=== PATIENT | female | born 1950 | race Caucasian/White ===

== ENCOUNTER 2018-07-06 10:50 | Outpatient (CLI) | payer MEDICARE, OTHER ==
--- NOTE | 2018-07-06 12:59 | RAD ---
THREE VIEWS CERVICAL SPINE: Date: 07-06-18 History: Prior neck surgery. Pre-operative evaluation. Patient has loss of balance and burning sensat ion in both hands. History of steroids injections. Comparison: 11-26-16 from [facility] FINDINGS: C1 to the cervicothoracic junction is seen on the lateral view although the T1 vertebral body is most ly obscured. There have been interval post-surgical changes compared to the prior study related to an terior cervical fusion of C3-4 and C4-5 levels with an anterior plate and screws transfixing this lev el. Intradiscal prostheses are also present at this level. In addition there is an anterior plate and screws transfixing the C7 and T1 vertebral bodies with intradiscal prosthesis at this level. There a re prominent degenerative changes seen at C5-6 and C6-7 levels with narrowing of the intervertebral d isc spaces and osteophyte formation present. No fracture or subluxation is seen. There is no abnormal translation motion seen between flexion and extension views of the cervical spine. There is mild pro minence of the prevertebral soft tissues when compared to prior exam, of uncertain significance. Righ t glenohumeral prosthesis is again present. IMPRESSION: 1. Post-surgical changes as well as degenerative changes involving the cervical spine. No fracture or subluxation is appreciated. There is no hardware complication identified. 2. Prominence of the prevertebral soft tissues when compared to the prior study in 2017. POS: [facility]
== END 2018-07-06 10:51 | disposition home or self-care (01) ==
LOC: TBSIIMAG 10:50
PROVIDERS: ATTEND Neurological Surgery
DX: M48.02 Spinal stenosis, cervical region (principal); M47.892 Other spondylosis, cervical region; Z98.1 Arthrodesis status
CPT/HCPCS: 72040

== ENCOUNTER 2018-07-13 10:31 | Observation (INO) | payer MEDICARE, OTHER ==
[2018-07-12 14:51] VITALS: BMI 29.2
--- NOTE | 2018-07-13 00:43 | HP ---
HISTORY OF PRESENT ILLNESS: Ms. Dhillon returns to our office. She has had ulnar nerve surgery, carpal tunnel release on the right as well as an ACDF C3-C4 , C4-C5 and C7-T1. These surgeries have helped her symptoms, but she still has burning in both hands. The fingers seem uncoordinated and there is imbalance and falls at home. In addition, there is low back pain and some leg pain, but these have responded very nicely to L-spine injections. The imbalance and the hand symptoms are terrible and she states that they are not improving. PAST MEDICAL HISTORY: Left breast cyst, appendix, shingles, left breast lump. PAST SURGICAL HISTORY: Hysterectomy, ACDF C4-C5, C7-T1, Dr. Lopez performed appendectomy in childbirth, right carpal tunnel release and ulnar release, shoulder replacement. FAMILY HISTORY: Father is , diagnosed with hypertension and heart disease. Mother is . Siblings are alive. SOCIAL HISTORY: The patient is a former smoker. She quit in 2011. Does not drink any alcohol or use illicit drugs. She is retired, , has two children. Does not drink any caffeine. REVIEW OF SYSTEMS: A 10-point review of systems has been completed and is negative other than stated above in the HPI. PHYSICAL EXAMINATION: CONSTITUTIONAL: The patient is alert and oriented. She is resting comfortably in our office, is not in any visible distress. HEENT: Head is normocephalic, atraumatic. Pupils are equal, round, reactive to light. Extraocular movements are intact. Moist mucous membranes. Hearing is intact. RESPIRATORY: Normal work of breathing in room air. CARDIOVASCULAR: Regular rate and rhythm. Normal S1, S2. NEUROLOGIC: Gait and station. Tandem gait 3 steps before stepping lateral, motor exam mild hand weakness symmetric. Sensory exam: Nondermatomal loss of sensation in wrist and hands entire hand, bilateral. There is some loss of foot sensation, but normal at the level of the ankle. Reflex exam, normal knee jerks and normal ankle jerks, to be of clonus on the left, one on the right. IMAGING: C spine MRI, improved with ACDF, but still stenosis at C3-C4, C4-C5, C5-C6, C6-C7, C7-T1, T1-T2. X-RAYS: Plates are in place. ASSESSMENT AND PLAN: Cervical stenosis with cervical myelopathy. Reports spondylosis with myelopathy. Dr. Lopez has offered the laminectomy without effusion. If there is no instability from the C3 through T2, if there is any instability, then rods and screws will be placed as well. Informed consent. We have discussed indications, risks, benefits, alternatives, and expected results from surgery. The risks discussed included, but were not limited to bleeding, infection, CSF leak, nerve damage, weakness, spinal cord injury, incontinence, paralysis, ventilator dependence, wheelchair dependence, loss of vision, hardware misplacement, cardiopulmonary complications, anesthesia or . Long-term complications discussed included, but were not limited to hardware failure and the degradation of the surrounding disks. She understands the risks and is willing to proceed with surgery. AGUSTÍN
[2018-07-13] MEDS ORDERED: Fentanyl 100 MCG/2 ML VIAL ONE ×2 (11:34→17:02)
[2018-07-13] MEDS ORDERED: Phenylephrine HCL 10 MG/ML VIAL ONE (11:34)
[2018-07-13 11:43] LABS: Hemoglobin 12.9 g/dL (12.0-16.0); Mean Corpuscular HGB CONC 31.3 g/dL (32.0-36.0); Mean Corpuscular Hemoglobin 23.4 pg (27.0-31.0); Mean Corpuscular Volume 74.7 fL (78.0-98.0); Mean Platelet Volume 7.3 fL (7.4-10.4); Platelet Count 277 thou/uL (130-400); RBC Distribution Width 13.1 % (11.5-14.5); Red Blood Cell (RBC) Count 5.53 mill/uL (4.20-5.40); White Blood Cell (WBC) Count 9.5 thou/uL (4.8-10.8)
[2018-07-13] MEDS ORDERED: Bacitracin Zinc Ointment 30 gm TUBE ONE ×2 (11:43→11:44)
[2018-07-13 11:48] LABS: INR-International Normal Ratio 0.9; PTT 31.6 SEC (22.9-36.1)
[2018-07-13] MEDS ORDERED: Sodium Chloride 0.9% 10 ML ONE ×2 (11:48→15:11)
[2018-07-13 12:05] LABS: Anion Gap 13 mmol/L (10-20); BUN (Urea Nitrogen) 11 mg/dL (9.8-20.1); Calc. Creatinine Clearance 90 mL/min (70-130); Calcium 10.8 mg/dL (7.8-10.44); Carbon Dioxide 32 mmol/L (23-31); Chloride 88 mmol/L (98-107); Estimated GFR-MDRD 80; Glucose 109 mg/dL (80-115); Potassium 3.1 mmol/L (3.5-5.1); Sodium 130 mmol/L (136-145)
[2018-07-13] MEDS ORDERED: CEFAZOLIN/Water 2 GM/20 ML SYRINGE ONE (12:06)
[2018-07-13] MEDS ORDERED: Thrombin 5000 UNITS/5 ML VIAL ONE (12:33)
[2018-07-13] MEDS ORDERED: Bupivacaine HCl 0.5%/Epinephrine 1:200,000/PF 30 ml Vial ONE (15:19)
[2018-07-13] MEDS ORDERED: Lidocaine 1% PF 5 ML VIAL ONE (15:36)
[2018-07-13] MEDS ORDERED: Ondansetron HCl/PF 4 MG/2 ML Vial ONE (15:36)
[2018-07-13] MEDS ORDERED: Esmolol 100 MG/10 ML VIAL ONE (15:36)
[2018-07-13] MEDS ORDERED: Dexamethasone 20 MG/5 ML VIAL ONE (15:36)
[2018-07-13] MEDS ORDERED: PHENYLEPHRINE-NS 100 MCG/ML 10 ML SYRINGE ONE (15:36)
[2018-07-13] MEDS ORDERED: ePHEDrine/0.9% NaCl/PF SYRINGE 50 mg/10 ml ONE (15:36)
[2018-07-13] MEDS ORDERED: Glycopyrrolate 0.2 MG/ML 5 ML SYRINGE ONE (15:36)
[2018-07-13] MEDS ORDERED: PROPOFOL 200 MG/20 ML VIAL ONE (15:36)
[2018-07-13] MEDS ORDERED: Promethazine HCl 12.5 MG SUPP PR PRN (16:19)
[2018-07-13] MEDS ORDERED: Acetaminophen/Codeine 30-300mg Tablet PO PRN ×2 (16:19)
[2018-07-13] MEDS ORDERED: Acetaminophen 325 MG TAB PO PRN (16:19)
[2018-07-13] MEDS ORDERED: Acetaminophen 650 MG Suppository PR PRN (16:19)
[2018-07-13] MEDS ORDERED: Promethazine HCl 25 MG/ML VIAL IM PRN ×2 (16:19→16:33)
[2018-07-13] MEDS ORDERED: Prochlorperazine 10 MG/2 ML VIAL IM PRN (16:19)
[2018-07-13] MEDS ORDERED: traMADol HCl 50 MG TAB PO PRN (16:19)
[2018-07-13] MEDS ORDERED: diphenhydrAMINE 25 MG CAP PO PRN (16:19)
[2018-07-13] MEDS ORDERED: Ondansetron HCl/PF 4 MG/2 ML Vial IVP PRN ×2 (16:19→16:33)
[2018-07-13] MEDS ORDERED: diphenhydrAMINE 50 MG/ML VIAL IVP PRN (16:19)
[2018-07-13] MEDS ORDERED: Promethazine 25 MG TAB PO PRN (16:19)
[2018-07-13] MEDS ORDERED: Fentanyl 100 MCG/2 ML VIAL SLOW IVP PRN (16:23)
[2018-07-13] MEDS ORDERED: HYDROmorphone 2 MG/ML VIAL SLOW IVP PRN (16:33)
[2018-07-13] MEDS ORDERED: PACU-Morphine 4MG/ML VIAL SLOW IVP PRN (16:33)
[2018-07-13] MEDS ORDERED: Promethazine HCl 25 MG/ML VIAL SLOW IVP PRN (16:33)
[2018-07-13] MEDS ORDERED: Scopolamine 1.5 mg/72 hour Patch TD SCH (17:00)
--- NOTE | 2018-07-13 19:46 | OP ---
DATE OF PROCEDURE: 07/13/2018 NEUROSURGERY OPERATIVE NOTE SURGEON: Claudio Lopez M.D. CITY RECORDER: None. PREOPERATIVE INDICATION: Prevent further neurological deterioration. PREOPERATIVE DIAGNOSES: Multilevel cervical spondylitic myelopathy. POSTOPERATIVE DIAGNOSES: Multilevel cervical spondylitic myelopathy. OPERATIVE PROCEDURE: Posterior cervical decompressive laminectomy, C3, C4, C5, C6, C7, T1, top of T2. PREOPERATIVE MEDICATION: Ancef 2 grams IV. DRAIN NUMBER: One. DRAIN TYPE: 10-Welsh Douglas. OPERATIVE DICTATION: The patient was brought to the operating room. General endotracheal anesthesia was induced. The Chino zach headholder was attached to patient's head and she was carefully rolled into prone position with her head immobilized by the [place] attachment for the operating table. A lateral fluoro radiograph was used to plan our incision. Hair was removed from the back of the neck with electric clippers. We marked out a midline incision and sterilely prepped and draped. We opened our incision with a 10- blade knife and controlled bleeding with bipolar and monopolar cautery. We used monopolar cautery to dissect through subcutaneous tissues to the ligamentum nuchae. We incised the ligament of nuchae in the midline and reflected the paraspinal muscles off the spinous processes and laminae from T2 all the way up to C2. A lateral fluoro radiograph confirmed the levels upon which we were operating. We then carried our dissection over to the facet joints and placed self-retaining retractors. Using a high-speed drill, we thinned the lamina on either side at C3, C4, C5, C6, C7, T1 and the top of T2 with each of her troughs drilled out. We used 1 and 2 mm Kerrison rongeurs to free the laminae from both sides remove the spinous process and laminae from C3- T1 as a single unit. We then widened our laminectomy defect at each of the levels 2 mm Kerrison rongeurs. We performed medial facetectomies and small foraminotomies at each level. We waxed the bone edges. When we were lateral to the thecal sac, we had decompressed enough of the dura. We turned our attention to T2. He removed the superior 6 mm of the lamina of T2 as well and widened our laminectomy defect until we were flush with the pedicles. We waxed all the bone edges. We irrigated copiously with bacitracin irrigation. We infused local anesthetic in the paraspinal muscles. We tunneled a drain inferiorly through a separate stab incision. We treated the wound with vancomycin powder. We closed the wound in anatomic layers. We applied a sterile dressing. This was a clean case and no contamination. AGUSTÍN
--- NOTE | 2018-07-13 19:48 | PDOC.PN ---
- Subjective Encounter Start Date: 07/13/18 Encounter Start Time: 19:47 Patient seen and examined for med mngt. Underwent Cervical decom. laminectomy. Pain controlled. No CP/SOB/Palpitations/N/V. - Objective MAR Reviewed: Yes Vital Signs & Weight: Weight Weight 170 lb I&O: 07/12/18 07/13/18 07/14/18 06:59 06:59 06:59 Intake Total 20 Output Total 25 Balance -5 Result Diagrams: 07/13/18 11:32 07/13/18 11:32 EKG Reviewed by me: Yes (NSR/ NSST) Phys Exam - Physical Examination Constitutional: NAD Neck: no JVD, supple Respiratory: no wheezing, no rales, no rhonchi, clear to auscultation bilateral Cardiovascular: RRR, no rub no heaves/pulsations Gastrointestinal: soft, non-tender, no distention, positive bowel sounds Musculoskeletal: no edema Neurological: moves all 4 limbs Psychiatric: A&O x 3 Dx/Plan - Plan DVT proph w/SCDs IMPRESSION/PLAN: 1. HTN Start Diovan at low dose. Resume Lasix at dc 2. DM2 Resume Metformin, Add Sliding scale 3. HLD Resume Statins 4. Hypothyroidism Resume Levothyroixine 5. Asthma Resume home meds, Add PRN nebs 6. Hypokalmia Will replace 7. GERD Resume PPI 8. Former smoker Thank you for this consultation. Will follow. Full code. DPOA - self/family Review of Systems - Review of Systems Constitutional: negative: fever, chills, sweats, weakness, malaise, other Respiratory: negative: Cough, Dry, Shortness of Breath, Hemoptysis, SOB with Excertion, Pleuritic Pain, Sputum, Wheezing Cardiovascular: negative: chest pain, palpitations, orthopnea, paroxysmal nocturnal dyspnea, edema, light headedness, other Gastrointestinal: negative: Nausea, Vomiting, Abdominal Pain, Diarrhea, Constipation, Melena, Hematochezia, Other Genitourinary: negative: Dysuria, Frequency, Incontinence, Hematuria, Retention , Other - Medications/Allergies Allergies/Adverse Reactions: Allergies Allergy/AdvReac Type Severity Reaction Status Date / Time codeine Allergy Verified 07/12/18 14:51 Sulfa (Sulfonamide Allergy Verified 07/12/18 14:51 Antibiotics) Medications: Current Medications Acetaminophen (Tylenol) 650 mg PO Q4H PRN PRN Reason: Headache/Fever or Pain Acetaminophen (Tylenol) 650 mg VT Q4H PRN PRN Reason: Headache/Fever or Pain Acetaminophen/Codeine Phosphate (Tylenol #3) 1 tab PO Q3H PRN PRN Reason: Mild Pain (1-3) Acetaminophen/Codeine Phosphate (Tylenol #3) 2 tab PO Q3H PRN PRN Reason: Moderate Pain (4-6) Cefazolin Sodium (Ancef) 2 gm SLOW IVP 0400,1200,2000 [facility] Stop: 07/14/18 12:01 Diphenhydramine HCl (Benadryl) 25 mg IVP Q6H PRN PRN Reason: Itching Diphenhydramine HCl (Benadryl) 25 mg PO Q6H PRN PRN Reason: Itching Fentanyl (Sublimaze) 25 mcg SLOW IVP Q2H PRN PRN Reason: Pain Sodium Chloride (Normal Saline 0.9%) 1,000 mls @ 75 mls/hr IV .[id number] [facility] Morphine Sulfate (Morphine) 2 mg SLOW IVP Q1H PRN PRN Reason: Moderate Breakthrough Pain Ondansetron HCl (Zofran) 4 mg IVP DAILYPRN PRN PRN Reason: Nausea Ondansetron HCl (Zofran Odt) 4 mg SL Q4HR [facility] Prochlorperazine Edisylate (Compazine) 10 mg IM Q6H PRN PRN Reason: Nausea/Vomiting Promethazine HCl (Phenergan) 12.5 mg PO Q4H PRN PRN Reason: Nausea/Vomiting Promethazine HCl (Phenergan Suppository) 12.5 mg VT Q4H PRN PRN Reason: Nausea/Vomiting Promethazine HCl (Phenergan) 12.5 mg IM Q4H PRN PRN Reason: Nausea/Vomiting Scopolamine (Transderm Scop) 1.5 mg TD Q3D [facility] Sodium Chloride (Flush - Normal Saline) 10 ml IVF PRN PRN PRN Reason: Saline Flush Tizanidine HCl (Zanaflex) 4 mg PO Q6H PRN PRN Reason: Muscle Spasm Tramadol HCl (Ultram) 50 mg PO Q6H PRN PRN Reason: Mild Pain (1-3) Tramadol HCl (Ultram) 100 mg PO Q6H PRN PRN Reason: Moderate Pain (4-6)
[2018-07-13] MEDS ORDERED: Dextrose 50% Abboject 50 ML SYRINGE SLOW IVP PRN (19:59)
[2018-07-13] MEDS ORDERED: hydrALAZINE 20 MG/ML VIAL SLOW IVP PRN (19:59)
[2018-07-13] MEDS ORDERED: Insulin Regular 300 UNITS/3 ML VIAL SC PRN ×2 (19:59)
[2018-07-13] MEDS ORDERED: Dextrose 5% in Water 1,000 ML IV PRN (19:59)
[2018-07-13] MEDS ORDERED: Potassium Chloride 20 MEQ TAB PO SCH (20:00)
[2018-07-13] MEDS: Ondansetron ODT 4 MG TAB SL SCH ×2 (20:13→21:31)
[2018-07-13] MEDS: traMADol HCl 50 MG TAB PO PRN (21:28)
[2018-07-13] MEDS: metFORMIN XR 500 MG TAB PO SCH (21:29)
[2018-07-13] MEDS: CEFAZOLIN/Water 2 GM/20 ML SYRINGE SLOW IVP SCH (21:30)
[2018-07-13] MEDS: Montelukast Sodium 10 mg Tablet PO SCH (21:30)
[2018-07-13] MEDS: Sodium Chloride 0.9% 1,000 ML IV SCH (21:35)
[2018-07-14] MEDS: Ondansetron ODT 4 MG TAB SL SCH ×6 (02:00→20:11)
[2018-07-14] MEDS: tiZANidine HCl 4 MG TAB PO PRN ×3 (02:15→20:43)
[2018-07-14] MEDS ORDERED: Ondansetron HCl/PF 4 MG/2 ML Vial ONE (05:13)
[2018-07-14] MEDS ORDERED: Ondansetron ODT 4 MG TAB ONE (05:14)
[2018-07-14] MEDS: CEFAZOLIN/Water 2 GM/20 ML SYRINGE SLOW IVP SCH ×2 (05:40→12:51)
[2018-07-14] MEDS: Levothyroxine Sodium 75 MCG TAB PO SCH (06:10)
[2018-07-14] MEDS: Mometasone/Formoterol 120 PUFF INHALER INH SCH ×2 (06:55→19:20)
--- NOTE | 2018-07-14 08:20 | PRG ---
DATE OF SERVICE: 07/14/2018 I saw Ms. Dhillon this morning. She is postop day #1 from a multilevel cervical decompressive laminect giselle for spondylitic myelopathy. She had multiple segments that were stenosed from C3 all the way to T2. Decompressive laminectomy went well. Ms. Dhillon tells me this morning that her forearm burning i n her hand burning dysesthesias are better. They are not completely gone, but are markedly improved. She feels she can control her hands and fingers well. Vital signs and drain output are unavailable as a computer system is down. Nursing reports the drain put out 90 mL overnight. I have examined Joyce Dhillon and I find her interossei strength and hand intrinsic strength quite good. It is at least 4 /5. I have not tested her balance walking yet. The dressing is intact and the drain is working. My plan today is get physical therapy to get Ms. Dhillon out of bed, moving. When she is safe for activi ties of daily living and her drain tapers off to less than 5 mL an hour, then the drain could be pawan silke. She can be discharged home. Otherwise, that can happen tomorrow.
[2018-07-14] MEDS: traMADol HCl 50 MG TAB PO PRN ×2 (12:41→20:44)
[2018-07-14] MEDS: Sodium Chloride 0.9% 1,000 ML IV SCH ×2 (12:50→20:11)
[2018-07-14] MEDS: Rosuvastatin 20 MG TAB PO SCH (12:51)
[2018-07-14] MEDS: Valsartan 80 MG TAB PO SCH ×2 (12:52→20:10)
[2018-07-14] MEDS: Potassium Chloride 20 MEQ TAB PO SCH ×2 (12:52→20:44)
[2018-07-14] MEDS: metFORMIN XR 500 MG TAB PO SCH ×2 (12:53→20:10)
[2018-07-14] MEDS: Gabapentin 300 MG CAP PO SCH ×2 (16:40→20:10)
[2018-07-14] MEDS: Montelukast Sodium 10 mg Tablet PO SCH (20:10)
[2018-07-14] MEDS ORDERED: Zolpidem Tartrate 5 MG TAB PO PRN (20:24)
[2018-07-14 20:37] LABS: Anion Gap 10 mmol/L (10-20); BUN (Urea Nitrogen) 8 mg/dL (9.8-20.1); Calc. Creatinine Clearance 108 mL/min (70-130); Calcium 10.2 mg/dL (7.8-10.44); Carbon Dioxide 30 mmol/L (23-31); Chloride 101 mmol/L (98-107); Estimated GFR-MDRD Greater than 90; Glucose 136 mg/dL (80-115); Magnesium 1.9 mg/dL (1.6-2.6); Potassium 3.9 mmol/L (3.5-5.1); Sodium 137 mmol/L (136-145)
--- NOTE | 2018-07-14 20:44 | PDOC.PN ---
- Subjective Encounter Start Date: 07/14/18 Encounter Start Time: 13:00 Patient seen and examined for med mngt. No new complaints. No overnight events - Objective MAR Reviewed: Yes Vital Signs & Weight: Vital Signs (12 hours) Temp Pulse Resp BP Pulse Ox 07/14/18 20:15 98.4 F 95 20 131/65 97 07/14/18 19:18 90 28 H 94 L 07/14/18 15:23 97.9 F 81 16 138/84 98 07/14/18 13:41 88 24 H 07/14/18 11:27 98.3 F 83 16 137/84 96 07/14/18 08:45 98 Weight Weight 170 lb I&O: 07/13/18 07/14/18 07/15/18 06:59 06:59 06:59 Intake Total 20 1060 Output Total 25 Balance -5 1060 Result Diagrams: 07/13/18 11:32 07/14/18 20:00 Additional Labs: Accuchecks 07/14/18 07/14/18 17:50 12:25 POC Glucose 170 H 150 H Phys Exam - Physical Examination Constitutional: NAD Respiratory: no wheezing, no rhonchi Cardiovascular: RRR, no rub Gastrointestinal: soft, non-tender, positive bowel sounds Musculoskeletal: no edema Neurological: moves all 4 limbs Dx/Plan - Plan DVT proph w/SCDs IMPRESSION/PLAN: 1. HTN Cont Diovan. Resume Lasix at dc 2. DM2 Cont Metformin with sliding scale 3. HLD ContStatins 4. Hypothyroidism ContLevothyroixine 5. Asthma Cont Dulera with PRN Nebs 6. Hypokalmia Replaced 7. GERD Cont PPI 8. Chronic pain syndrome Resume Gabapentin per patient req 9. Former smoker Review of Systems - Review of Systems Respiratory: negative: Cough, Dry, Shortness of Breath, Hemoptysis, SOB with Excertion, Pleuritic Pain, Sputum, Wheezing Cardiovascular: negative: chest pain, palpitations, orthopnea, paroxysmal nocturnal dyspnea, edema, light headedness, other - Medications/Allergies Allergies/Adverse Reactions: Allergies Allergy/AdvReac Type Severity Reaction Status Date / Time codeine Allergy Verified 07/12/18 14:51 Sulfa (Sulfonamide Allergy Verified 07/12/18 14:51 Antibiotics) Medications: Current Medications Acetaminophen (Tylenol) 650 mg PO Q4H PRN PRN Reason: Headache/Fever or Pain Acetaminophen (Tylenol) 650 mg RI Q4H PRN PRN Reason: Headache/Fever or Pain Albuterol/Ipratropium (Duoneb) 3 ml NEB [id number] [facility] Last Admin: 07/14/18 19:18 Dose: 3 ml Dextrose/Water (Dextrose 50%) 25 gm SLOW IVP PRN PRN PRN Reason: Hypoglycemia Diphenhydramine HCl (Benadryl) 25 mg IVP Q6H PRN PRN Reason: Itching Diphenhydramine HCl (Benadryl) 25 mg PO Q6H PRN PRN Reason: Itching Fentanyl (Sublimaze) 25 mcg SLOW IVP Q2H PRN PRN Reason: Pain Gabapentin (Neurontin) [address] [facility] Last Admin: 07/14/18 20:10 Dose: 600 mg Glucagon (Glucagon) 1 mg IM PRN PRN PRN Reason: Hypoglycemia Hydralazine HCl (Apresoline) 10 mg SLOW IVP Q4H PRN PRN Reason: SBP Greater Than 180 Sodium Chloride (Normal Saline 0.9%) 1,000 mls @ 75 mls/hr IV .[id number] [facility] Last Admin: 07/14/18 20:11 Dose: Not Given Dextrose/Water (D5w) 1,000 mls @ 0 mls/hr IV .Q0M PRN PRN Reason: Hypoglycemia Insulin Human Regular (Humulin R) 0 units SC .MILD SLIDING SCALE PRN PRN Reason: Mild Correctional Scale Insulin Human Regular (Humulin R) 0 units SC .BEDTIME SLIDING SC PRN PRN Reason: Bedtime Correctional Scale Levothyroxine Sodium (Synthroid) [address] [facility] Last Admin: 07/14/18 06:10 Dose: 75 mcg Metformin HCl (Glucophage Xr) [address] [facility] Last Admin: 07/14/18 20:10 Dose: 500 mg Mometasone Furoate/Formoterol Fumar (Dulera 200 Mcg/5 Mcg Inhaler) 2 puff INH BID-RT [facility] Last Admin: 07/14/18 19:20 Dose: 2 puff Montelukast Sodium (Singulair) [address] [facility] Last Admin: 07/14/18 20:10 Dose: 10 mg Morphine Sulfate (Morphine) 2 mg SLOW IVP Q1H PRN PRN Reason: Moderate Breakthrough Pain Ondansetron HCl (Zofran) 4 mg IVP DAILYPRN PRN PRN Reason: Nausea Ondansetron HCl (Zofran Odt) [address] [facility] Last Admin: 07/14/18 20:11 Dose: 4 mg Potassium Chloride (K-Dur) 20 meq PO BID-[facility] Last Admin: 07/14/18 12:52 Dose: 20 meq Prochlorperazine Edisylate (Compazine) 10 mg IM Q6H PRN PRN Reason: Nausea/Vomiting Promethazine HCl (Phenergan) 12.5 mg PO Q4H PRN PRN Reason: Nausea/Vomiting Promethazine HCl (Phenergan Suppository) 12.5 mg RI Q4H PRN PRN Reason: Nausea/Vomiting Promethazine HCl (Phenergan) 12.5 mg IM Q4H PRN PRN Reason: Nausea/Vomiting Rosuvastatin Calcium (Crestor) [address] [facility] Last Admin: 07/14/18 12:51 Dose: 20 mg Scopolamine (Transderm Scop) 1.[address] [facility] Last Admin: 07/14/18 00:08 Dose: 1.5 mg Sodium Chloride (Flush - Normal Saline) 10 ml IVF PRN PRN PRN Reason: Saline Flush Tizanidine HCl (Zanaflex) 4 mg PO Q6H PRN PRN Reason: Muscle Spasm Last Admin: 07/14/18 12:51 Dose: 4 mg Tramadol HCl (Ultram) 50 mg PO Q6H PRN PRN Reason: Mild Pain (1-3) Tramadol HCl (Ultram) 100 mg PO Q6H PRN PRN Reason: Moderate Pain (4-6) Last Admin: 07/14/18 12:41 Dose: 100 mg Valsartan (Diovan) [address] [facility] Last Admin: 07/14/18 20:10 Dose: 80 mg Zolpidem Tartrate (Ambien) 10 mg PO HS PRN PRN Reason: Insomnia
[2018-07-15] MEDS: Ondansetron ODT 4 MG TAB SL SCH ×4 (01:22→11:13)
[2018-07-15] MEDS: tiZANidine HCl 4 MG TAB PO PRN (05:03)
[2018-07-15] MEDS: traMADol HCl 50 MG TAB PO PRN (05:03)
[2018-07-15] MEDS: Levothyroxine Sodium 75 MCG TAB PO SCH (05:04)
[2018-07-15] MEDS: Gabapentin 300 MG CAP PO SCH ×2 (05:52→11:12)
[2018-07-15] MEDS: Mometasone/Formoterol 120 PUFF INHALER INH SCH (06:15)
[2018-07-15] MEDS: Sodium Chloride 0.9% 1,000 ML IV SCH (08:16)
[2018-07-15] MEDS: Potassium Chloride 20 MEQ TAB PO SCH (08:16)
[2018-07-15] MEDS: Valsartan 80 MG TAB PO SCH (08:17)
[2018-07-15] MEDS: Rosuvastatin 20 MG TAB PO SCH (08:17)
[2018-07-15] MEDS: metFORMIN XR 500 MG TAB PO SCH (08:17)
[2018-07-15 11:34] VITALS: BP 125/81; TEMP 98.5
--- NOTE | 2018-07-15 13:54 | DIS ---
DATE OF ADMISSION: 07/13/2018 DATE OF DISCHARGE: 07/15/2018 DISCHARGE DIAGNOSES: Include, 1. Cervical spinal stenosis. 2. Hypertension. 3. Type 2 diabetes mellitus. 4. Hyperlipidemia. 5. Hypothyroidism. 6. Asthma. 7. Hypokalemia. 8. Gastroesophageal reflux disease. HOSPITAL COURSE: Ms. Dhillon was admitted to undergo posterior cervical decompression and laminectomy for cervical spinal stenosis and myelopathy C3-T2. The patient required several overnights stay for adequate pain control as well as a ЕЛЕНА drain output. Today, she has good strength in the bilateral up per extremities and lower extremities and her drain output has been minimal. This has been removed a nd she will be discharged home, doing well postoperatively. Appropriate patient education and outpat ient followups were provided to the patient and her dressing was clean, dry, and intact without drain age. The patient certainly understood to call the office with questions or concerns, otherwise she w ill follow up as scheduled.
== END 2018-07-15 12:58 | disposition home or self-care (01) ==
LOC: SDC 10:31 → SJJU 17:32
PROVIDERS: ADMIT Neurological Surgery; ATTEND Neurological Surgery
PROC: 00NW0ZZ Release Cervical Spinal Cord, Open Approach (ICD-10-PCS; principal; 2018-07-13)
PROC: 00NX0ZZ Release Thoracic Spinal Cord, Open Approach (ICD-10-PCS; 2018-07-13)
DX: M47.12 Other spondylosis with myelopathy, cervical region (principal); M48.02 Spinal stenosis, cervical region; M47.14 Other spondylosis with myelopathy, thoracic region; I10 Essential (primary) hypertension; E11.9 Type 2 diabetes mellitus without complications; E78.5 Hyperlipidemia, unspecified; E03.9 Hypothyroidism, unspecified; J45.909 Unspecified asthma, uncomplicated; E87.6 Hypokalemia; K21.9 Gastro-esophageal reflux disease without esophagitis; Z87.891 Personal history of nicotine dependence; Z88.2 Allergy status to sulfonamides; Z88.5 Allergy status to narcotic agent; Z98.890 Other specified postprocedural states; Z98.1 Arthrodesis status; Z79.899 Other long term (current) drug therapy; Z79.84 Long term (current) use of oral hypoglycemic drugs
CPT/HCPCS: 51701; 63003; 63015; 76001; 80048 ×2; 82962 ×2; 83735; 85027; 85610; 85730; 93005; 94640 ×5; 94664; 96374; 96375; 96376; 97116; 97139; 97530; G0378; G8978; G8979; 36415; 36416; 93010; J0670; J1100; J2001; J2370; J2405; J2704; J3010; J3370; J3490; J7620; Q0162